=== PATIENT | male | born 1970 | race Caucasian/White ===

== ENCOUNTER 2018-01-01 14:15 | Emergency (ER) | payer MEDICAID ==
[~2018-01-01] VITALS: Ht 167.6 cm; Wt 68.0 kg
[2018-01-01 14:17] VITALS: BP 141/92
[2018-01-01] MEDS ORDERED: ONDANSETRON HCL 4MG/2ML VIAL IV STA (14:51)
[2018-01-01 15:51] LABS: BASOPHILS % 0.9 % (0.0-2.0); EOSINOPHILS % 1.8 % (0.0-5.0); HEMATOCRIT. 40.3 % (42.0-52.0); HEMOGLOBIN. 14.4 g/dL (14.0-18.0); LYMPHOCYTES % 33.5 % (20.0-50.0); MEAN CORPUSCULAR HEMOGLOBIN 34.5 pg (28.0-32.0); MEAN CORPUSCULAR VOLUME 96.5 fL (80.0-94.0); MONOCYTES % 5.5 % (2.0-8.0); NEUTROPHILS % 58.3 % (40.0-76.0); PLATELET 192 x1000/uL (130-400); RED BLOOD CELL COUNT 4.18 mill/uL (4.7-6.1); RED CELL DISTRIBUTION WIDTH 14.3 % (11.6-14.6)
[2018-01-01 16:00] LABS: CHLORIDE 107 mEq/L (98-107)
[2018-01-01 16:09] LABS: ETHANOL BLOOD 399 mg/dL
== END 2018-01-01 16:25 | disposition left against medical advice (07) ==
LOC: ER 14:23
DX: F10.129 Alcohol abuse with intoxication, unspecified (principal); I10 Essential (primary) hypertension; E11.9 Type 2 diabetes mellitus without complications; F17.200 Nicotine dependence, unspecified, uncomplicated; R79.89 Other specified abnormal findings of blood chemistry
CPT/HCPCS: 36415; 80053; 80307; 80329; 83690; 84484; 85025; 99284; G0482

== ENCOUNTER 2018-05-05 16:13 | Emergency (ER) | payer SELFPAY ==
[~2018-05-05] VITALS: Ht 170.2 cm; Wt 76.0 kg
[2018-05-05 16:14] VITALS: BP 116/72
[2018-05-05] MEDS ORDERED: SODIUM CHLORIDE 0.9% 1,000 ML IV ONE (16:28)
[2018-05-05] MEDS ORDERED: ONDANSETRON HCL 4MG/2ML VIAL IV ONE (16:30)
== END 2018-05-05 17:45 | disposition left against medical advice (07) ==
LOC: ER 16:13
DX: F10.229 Alcohol dependence with intoxication, unspecified (principal); I10 Essential (primary) hypertension; Y90.9 Presence of alcohol in blood, level not specified; Z79.899 Other long term (current) drug therapy
CPT/HCPCS: 82962; 99283; J7030

== ENCOUNTER 2018-06-24 14:44 | Emergency (ER) | payer SELFPAY ==
[~2018-06-24] VITALS: Ht 165.1 cm; Wt 75.0 kg
[2018-06-24 16:01] VITALS: BP 0/0
== END 2018-06-24 16:23 | disposition left against medical advice (07) ==
LOC: ER 14:44
DX: Z53.21 Procedure and treatment not carried out due to patient leaving prior to being seen by health care provider (principal)

== ENCOUNTER 2018-08-18 10:30 | Emergency (ER) | payer SELFPAY ==
[~2018-08-18] VITALS: Ht 172.7 cm; Wt 80.0 kg
[2018-08-18] MEDS ORDERED: SODIUM CHLORIDE 0.9% 1,000 ML IV ONE (10:50)
[2018-08-18] MEDS ORDERED: KETOROLAC 30MG/ML VIAL IV STA (10:50)
[2018-08-18] MEDS ORDERED: ONDANSETRON HCL 4MG/2ML INJ IV STA (10:50)
[2018-08-18 10:55] VITALS: BP 123/75
[2018-08-18 11:44] LABS: BASOPHILS % 0.6 % (0.0-2.0); EOSINOPHILS % 2.3 % (0.0-5.0); HEMATOCRIT. 40.9 % (42.0-52.0); LYMPHOCYTES % 47.2 % (20.0-50.0); MEAN CORPUSCULAR HEMOGLOBIN 31.7 pg (28.0-32.0); MEAN CORPUSCULAR VOLUME 92.6 fL (80.0-94.0); MEAN PLATELET VOLUME 8.6 fl (7.4-10.4); MONOCYTES % 9.1 % (2.0-8.0); NEUTROPHILS % 40.8 % (40.0-76.0); PLATELET 165 x1000/uL (130-400); RED BLOOD CELL COUNT 4.41 mill/uL (4.7-6.1); RED CELL DISTRIBUTION WIDTH 16.8 % (11.6-14.6)
[2018-08-18 11:52] LABS: INR 1.1; PARTIAL THROMBOPLASTIN TIME 28.7 sec (23.4-31.0); PROTHROMBIN TIME 11.1 sec (9.1-11.1)
[2018-08-18 11:54] LABS: CLARITY URINE CLEAR (CLEAR); COLOR URINE YELLOW (YELLOW); KETONES URINE NEGATIVE (NEGATIVE); LEUKOCYTE ESTERASE URINE NEGATIVE (NEGATIVE); NITRITE URINE NEGATIVE (NEGATIVE); OCCULT BLOOD URINE NEGATIVE (NEGATIVE); PH URINE 6.5 (4.5-8.0); PROTEIN URINE NEGATIVE (NEGATIVE); SPECIFIC GRAVITY URINE 1.002 (1.005-1.030); UROBILINOGEN URINE 0.2 E.U./dL (0.2-1.0)
[2018-08-18 11:56] LABS: CHLORIDE 110 mEq/L (98-107)
[2018-08-18 12:06] LABS: *AMPHETAMINES SCREEN URINE NEGATIVE (NEGATIVE); *BARBITURATES SCREEN URINE NEGATIVE (NEGATIVE); *BENZODIAZEPINES SCREEN URINE NEGATIVE (NEGATIVE); METHADONE URINE SCREEN NEGATIVE (NEGATIVE); OPIATES URINE SCREEN NEGATIVE (NEGATIVE)
[2018-08-18 12:07] LABS: *COCAINE SCREEN URINE NEGATIVE (NEGATIVE); CANNABINOID URINE SCREEN NEGATIVE (NEGATIVE); PHENCYCLIDINE URINE SCREEN NEGATIVE (NEGATIVE)
[2018-08-18 12:24] LABS: ETHANOL BLOOD 459 mg/dL
== END 2018-08-18 12:26 | disposition left against medical advice (07) ==
LOC: ER 10:41
DX: F10.229 Alcohol dependence with intoxication, unspecified (principal); K80.20 Calculus of gallbladder without cholecystitis without obstruction; K74.60 Unspecified cirrhosis of liver; R10.9 Unspecified abdominal pain; D64.9 Anemia, unspecified; I10 Essential (primary) hypertension; Y90.8 Blood alcohol level of 240 mg/100 ml or more
CPT/HCPCS: 36415; 74176; 80053; 80305; 81003; 83690; 85025; 85610; 85730; 99285; G0482; J1885; J2405; J7030

== ENCOUNTER 2018-12-13 12:40 | Emergency (ER) | payer SELFPAY ==
[~2018-12-13] VITALS: Ht 172.7 cm; Wt 80.0 kg
[2018-12-13 12:43] VITALS: BP 136/91
== END 2018-12-13 15:19 | disposition left against medical advice (07) ==
LOC: ER 12:56
DX: F10.220 Alcohol dependence with intoxication, uncomplicated (principal); I10 Essential (primary) hypertension; D64.9 Anemia, unspecified; Z53.21 Procedure and treatment not carried out due to patient leaving prior to being seen by health care provider

== ENCOUNTER 2019-11-10 10:07 | Emergency (ER) | payer MEDICAID ==
[~2019-11-10] VITALS: Ht 165.1 cm; Wt 82.0 kg
[2019-11-10] MEDS ORDERED: KETOROLAC 30MG/ML VIAL IV STA (10:27)
[2019-11-10] MEDS ORDERED: SODIUM CHLORIDE 0.9% 1,000 ML IV ONE (10:27)
[2019-11-10] MEDS ORDERED: CEFTRIAXONE 1 G PREMIX 50 ML IV ONE (10:30)
[2019-11-10] MEDS ORDERED: BACITRACIN ZINC OINT UDPKT TOP ONE (10:30)
[2019-11-10] MEDS ORDERED: SULFAMETHOXAZOLE/TRIMETHOPRIM 800/160MG TABLET PO ONE (10:30)
[2019-11-10 11:14] LABS: BASOPHILS % 0.7 % (0.0-2.0); EOSINOPHILS % 1.2 % (0.0-5.0); HEMATOCRIT. 42.3 % (42.0-52.0); HEMOGLOBIN. 13.8 g/dL (14.0-18.0); LYMPHOCYTES % 52.9 % (20.0-50.0); MEAN CORPUSCULAR HEMOGLOBIN 30.2 pg (28.0-32.0); MEAN CORPUSCULAR VOLUME 92.6 fL (80.0-94.0); MEAN PLATELET VOLUME 7.5 fl (7.4-10.4); MONOCYTES % 5.3 % (2.0-8.0); NEUTROPHILS % 39.9 % (40.0-76.0); PLATELET 163 x1000/uL (130-400); RED BLOOD CELL COUNT 4.57 mill/uL (4.7-6.1); RED CELL DISTRIBUTION WIDTH 15.1 % (11.6-14.6)
[2019-11-10 11:23] LABS: CHLORIDE 111 mEq/L (98-107)
[2019-11-10 11:51] LABS: ETHANOL BLOOD 458 mg/dL
[2019-11-10 13:46] LABS: *AMPHETAMINES SCREEN URINE NEGATIVE (NEGATIVE); *BARBITURATES SCREEN URINE NEGATIVE (NEGATIVE); *BENZODIAZEPINES SCREEN URINE NEGATIVE (NEGATIVE); *COCAINE SCREEN URINE NEGATIVE (NEGATIVE); METHADONE URINE SCREEN NEGATIVE (NEGATIVE); OPIATES URINE SCREEN NEGATIVE (NEGATIVE); PHENCYCLIDINE URINE SCREEN NEGATIVE (NEGATIVE)
[2019-11-10 13:47] LABS: CANNABINOID URINE SCREEN NEGATIVE (NEGATIVE)
[2019-11-10 15:00] VITALS: BP 125/77
== END 2019-11-10 15:32 | disposition home or self-care (01) ==
LOC: ER 11:00
DX: F10.129 Alcohol abuse with intoxication, unspecified (principal); Y90.8 Blood alcohol level of 240 mg/100 ml or more; T21.03XA Burn of unspecified degree of upper back, initial encounter; X08.8XXA Exposure to other specified smoke, fire and flames, initial encounter; Y93.9 Activity, unspecified; Y92.9 Unspecified place or not applicable
CPT/HCPCS: 36415; 71045; 72070; 80053; 80305; 80320; 85025; 93005; 96365; 96375; 99284; J0696; J1885; J7030; G0480